=== PATIENT | male | born 1955 | race Caucasian/White ===

== ENCOUNTER → 2024-05-13 | Outpatient (BNVA) | payer MEDICARE, OTHER, SELFPAY | END | disposition home or self-care (01) | PROVIDERS: Visit Provider Urology | DX: N40.1 Benign prostatic hyperplasia with lower urinary tract symptoms (principal); N13.8 Other obstructive and reflux uropathy; Z80.42 Family history of malignant neoplasm of prostate; R97.20 Elevated prostate specific antigen [PSA]; N40.2 Nodular prostate without lower urinary tract symptoms; E78.5 Hyperlipidemia, unspecified; I10 Essential (primary) hypertension; E66.9 Obesity, unspecified; Z68.24 Body mass index [BMI] 24.0-24.9, adult | CPT/HCPCS: 81003; 99203; G0463 ==

== ENCOUNTER → 2024-08-05 | Outpatient (BNVA) | payer MEDICARE, OTHER, SELFPAY | END | disposition home or self-care (01) | PROVIDERS: Visit Provider Urology | DX: N40.1 Benign prostatic hyperplasia with lower urinary tract symptoms (principal); R39.12 Poor urinary stream | CPT/HCPCS: 51741; 51798 ==

== ENCOUNTER 2024-10-23 07:09 | Emergency (ER) | payer MEDICARE, OTHER, SELFPAY ==
[2024-10-23 07:10] VITALS: BMI 22.8
[2024-10-23 07:31] VITALS: BP 142/78; PULSE 89; RESP 16; TEMP 37.2; O2SAT 96
--- NOTE | 2024-10-23 07:38 | XR_ITS ---
Examination: CT abdomen and pelvis without contrast. Coronal 3-D reconstructions. Sagittal 2-D reconstructions. Date and time of exam:October 23, 2024, 0824 hrs. Indications: Onset left flank pain with nausea vomiting today CTDI: vol (mGy): 7.11 DLP: (mGycm): 388 Technique: Axial images of the abdomen have been obtained, 3 mm slice thickness Intravenous contrast material has not been administered. Low dose protocols were performed. One or more of the following dose reduction techniques were used; automated exposure control, adjustment of the mA and/or KV according to patient size, use of iterative reconstruction technique. Findings: No focal liver or splenic lesions No extrahepatic biliary tract dilatation. No pancreatic mass. Normal adrenal glands. Moderate bilateral hydronephrosis without renal or ureteral calculi, which appears to be secondary to distended urinary bladder and significant prostatomegaly No bowel obstruction or diverticulitis No pericecal inflammatory change Advanced degenerative disc disease L4-L5, L5-S1 Impression: Moderate bilateral hydronephrosis, distended urinary bladder, which appears to be outflow obstruction secondary to markedly enlarged prostate, clinical correlation advised
--- NOTE | 2024-10-23 07:40 | PD.EDRME ---
Rapid Medical Screening Exam RME Arrival date/time: 10/23/24 07:09 Chief Complaint: Urogenital-Male Time Seen by Provider: 10/23/24 07:12 Vital signs: Vital Signs Temperature 99.0 F 10/23/24 07:31 Pulse Rate 89 10/23/24 07:31 Respiratory Rate 16 10/23/24 07:31 Blood Pressure 142/78 H 10/23/24 07:31 Pulse Oximetry (%) 96 10/23/24 07:31 Oxygen Delivery Method Room Air 10/23/24 07:31 RME Narrative: 69yo male with 3day hx of lef flank pain that comes in waves. no hx of kidney stones. States had and mri 05/2023 for other issue of pancreas and was told he has very distended bladder. States chills but not fever, no burning with urination, no urinary retention.
[2024-10-23 07:50] LABS: Collection Type, Urine Clean Catch
[2024-10-23] MEDS: HYDROcodone/APAP 5/325 TABLET 1 TAB PO (07:51)
[2024-10-23] MEDS: ONDANSETRON ODT 4 MG TABRAP PO (07:51)
[2024-10-23] MEDS: KETOROLAC INJ 60 MG/2 ML VIAL 30 MG IM (07:52)
[2024-10-23 08:10] LABS: Bilirubin,Urine Negative (Negative); Blood,Urine Negative (Negative); Clarity,Urine Clear (Clear/Hazy); Color,Urine Lt-Yellow (Lt Yel-Yel); Glucose, Urine Negative (Negative); Ketones,Urine Negative (Negative); Leukocyte Esterase,Urine Positive (Negative); Nitrite,Urine Negative (Negative); PH,Urine 6.0 (5.0-7.0); Protein,Urine Negative (Neg - Trace); RBC,Urine 2 /hpf (0-3); Specific Gravity,Urine 1.013 (1.001-1.035); Squamous Epithelial Cell,Urine < 1 /hpf (0-5); Urobilinogen,Urine Negative mg/dL (0.0-1.0); WBC,Urine 1 /hpf (0-5)
[2024-10-23 08:12] LABS: Basophils # (Auto) 0.1 Thou/mm3 (0.0-0.2); Basophils % (Auto) 1 % (0-2.5); Eosinophils # (Auto) 0.1 Thou/mm3 (0.0-0.5); Eosinophils % (Auto) 1 % (0-10); Hematocrit 42.0 % (41.0-53.0); Hemoglobin 13.8 g/dL (13.5-16.0); Immature Granulocytes Auto 0.03 Thou/mm3 (0.00-0.00); Lymphocytes # (Auto) 1.0 Thou/mm3 (1.0-4.8); Lymphocytes % (Auto) 7 % (10-50); Mean Corpuscular HGB Conc 32.9 g/dl (31.0-37.0); Mean Corpuscular Hemoglobin 29.6 pg (25.0-35.0); Mean Corpuscular Volume 90 fL (80-100); Monocytes # (Auto) 1.3 Thou/mm3 (0.0-0.8); Monocytes % (Auto) 10 % (0-12); Neutrophils # (Auto) 10.9 Thou/mm3 (1.8-7.7); Neutrophils % (Auto) 82 % (37-80); Nucleated Red Blood Cell # 0.00 Thou/mm3 (0.00-0.00); Nucleated Red Blood Cell % 0 /100 WBC (0); Platelet Count 200 Thou/mm3 (140-440); RDW Standard Deviation 42.9 fL (35.1-43.9); Red Blood Count 4.66 Miln/mm3 (4.50-5.90); White Blood Count 13.3 Thou/mm3 (3.8-10.6)
--- NOTE | 2024-10-23 08:52 | PC.NURSE ---
pt came in with c/o left flank pain x 3 days. pt states that pain comes and goes but the since yesterday pain has been more frequent and spread to lower back and left abd area. pt denies blood in urine or painful urination but reports sometimes having to push on lower abd to get urine to come out. pt states pain is down to 2/10 after receiving medications this visit prior to coming into room. call light placed within reach
[2024-10-23 08:56] LABS: Alanine Aminotransferase 14 U/L (10-49); Albumin, Serum 4.7 gm/dL (3.4-4.8); Albumin/Globulin Ratio 1.9 (1.2-2.2); Alkaline Phosphatase 65 U/L (46-116); Anion Gap 10 (7-16); Aspartate Amino Transferase 11 U/L (0-34); BUN/Creatinine Ratio 14 Ratio (12-20); Bilirubin,Total 0.9 mg/dL (0.3-1.2); Blood Urea Nitrogen 23 mg/dL (9-23); Calcium 10.3 mg/dL (8.3-10.6); Calcium (Corrected) 10.3 mg/dL (8.5-10.1); Carbon Dioxide 29.1 mMol/L (20.0-31.0); Chloride 103 mMol/L (98-107); Creatinine (Component) 1.7 mg/dL (0.6-1.3); Estimated Creatinine Clearance 40.7 mL/min (>60); Globulin 2.5 gm/dL (2.3-3.5); Glucose 111 mg/dL (74-106); Lipase 32 U/L (12-53); Osmolality,Calculated 287 (275-295); Potassium 3.9 mMol/L (3.4-5.1); Sodium 142 mMol/L (136-145); Total Protein 7.2 gm/dL (5.7-8.2); eGFR 43 See Note
--- NOTE | 2024-10-23 09:47 | PD.EDMALE ---
ED Male Genitalurinary RME/HPI General Chief complaint: Urogenital-Male Stated complaint: LEFT FLANK PAIN Time Seen by Provider: 10/23/24 07:12 Arrival date/time: 10/23/24 07:09 Limitations: no limitations RME / HPI RME / HPI Narrative: 69yo male with 3day hx of lef flank pain that comes in waves. no hx of kidney stones. States had and mri 05/2023 for other issue of pancreas and was told he has very distended bladder. States chills but not fever, no burning with urination, no urinary retention. DR. GARCIA MAIN ED EVALUATION: 69 year old male with history of hypertension and BPH presents to the ED for evaluation of left flank pain with radiation to left mid abdomen that began intermittently 3 days ago and occurring more frequently last night. Described as a constant aching sensation that is rated as moderate to severe. Accompanied by chills, sweats, and urinary hesitancy. Denies fevers, vomiting, diarrhea, constipation, dysuria, urinary hesitancy, dysuria, or hematuria. Related Data Home Medications ?Medication ?Instructions ?Recorded ?Confirmed aspirin 81 mg tablet,delayed 81 mg PO QDAY 05/13/24 08/05/24 release losartan 25 mg tablet 25 mg PO BID 05/13/24 08/05/24 omeprazole 20 mg capsule,delayed 20 mg PO QDAY 05/13/24 08/05/24 release triamterene 37.5 1 cap PO QDAY 05/13/24 08/05/24 mg-hydrochlorothiazide 25 mg capsule Previous Rx's ?Medication ?Instructions ?Recorded tamsulosin 0.4 mg capsule (Flomax) 0.4 mg PO QDAY BPH #30 caps 10/23/24 Allergies Allergy/AdvReac Type Severity Reaction Status Date / Time codeine Allergy Nausea Verified 08/05/24 09:35 gluten Allergy Diarrhea Verified 08/05/24 09:35 Review of Systems Review of Systems Systems Reviewed: All systems reviewed, normal except as documented Past Medical History Past Medical History CARDIAC: Positive Hypertension; Negative Congestive Heart Failure RESPIRATORY: Negative Chronic Obstructive Pulmonary Disease (COPD) GENITOURINARY: Positive Benign Prostatic Hyperplasia; Negative Renal Disease ENDOCRINE: Negative Diabetes Mellitus Type 1 or Diabetes Mellitus Type 2 Social History SMOKING STATUS: Never smoker ED Exam General Limitations: Present no limitations General appearance: Present alert and in no apparent distress Head Head exam: Present atraumatic and normocephalic Eye Eye exam: Present normal appearance, PERRL and EOMI ENT ENT exam: Present normal exam, normal oropharynx and mucous membranes moist Neck Neck exam: Present normal inspection, full ROM and trachea midline Chest Chest inspection: Present normal inspection and symmetric chest wall rise Respiratory Respiratory exam: Present normal lung sounds bilaterally Cardiovascular Cardiovascular exam: Present regular rate, normal rhythm and normal heart sounds Abdominal Exam Abdominal exam: Present soft, normal bowel sounds and other (enlarged bladder ) Extremities Exam Extremities exam: Present normal inspection and full ROM Back Exam Back exam: Present normal inspection and full ROM Neurological Exam Neurological exam: Present alert, oriented X3 and CN II-XII intact Psychiatric Psychiatric exam: Present normal affect and normal mood Skin Skin exam: Present warm, dry, intact and normal color Course Quality Measures none Orders Category Date Time Status Simon to [place] Routine Care 10/23/24 10:[address] abdomen pelvis wo con Stat Exams 10/23/24 07:38 Completed CBC Stat Lab 10/23/24 08:00 Completed CMP [Comprehensive Metabolic Panel] Stat Lab 10/23/24 08:00 Completed Lipase Stat Lab 10/23/24 08:00 Completed Urinalysis Stat Lab 10/23/24 07:27 Completed HYDROcodone*/APAP 5/325 [Ilfeld 5/325] Med 10/23/24 07:38 Discontinued 1 tab PO X1 ONE Ketorolac Inj [Toradol Inj] Med 10/23/24 07:38 Discontinued 30 mg IM X1 ONE Lidocaine Jelly 2% Urojet [Xylocaine Jelly 2% Urojet] Med 10/23/24 10:40 Discontinued See Dose Instructions TOP X1 ONE Ondansetron Odt [Zofran Odt] Med 10/23/24 07:38 Discontinued 4 mg PO X1 ONE Vital Signs Vital signs: Vital Signs Temperature 99.0 F 10/23/24 07:31 Pulse Rate 89 10/23/24 07:31 Respiratory Rate 16 10/23/24 07:31 Blood Pressure 142/78 H 10/23/24 07:31 Pulse Oximetry (%) 96 10/23/24 07:31 Oxygen Delivery Method Room Air 10/23/24 07:31 Pulse ox is 96% on room air which is adequate. Urogenital - Male MDM Narrative MDM Narrative:: Vidya Boyd, asim scribing for and in the presence of Dr. Garcia. On examination, patients bladder was distended. CT abdomen shows distended urinary bladder, which appears to be outflow obstruction secondary to markedly enlarged prostate . A simon catheter was placed and patient had a total of 1,700cc of urine. Patient data External records reviewed:: [facility] previous records Clinical information provided by:: patient Social determinants that could affect healthcare access:: none Patient has the following chronic illnesses:: HTN, BPH How is presenting disease/condition affected by chronic disease/condition?: exacerbated by Evaluation data The following diagnostics were reviewed and interpreted by me:: lab results and radiology exam(s) Lab and/or radiology exams considered but not ordered:: None Interpretation Summary: Ordering Physician: Sylvia Burrell PA-C Date of Service: 10/23/24 Procedure(s): CT abdomen pelvis wo con Accession Number(s): [id number] cc: Sylvia Burrell PA-C; Larry Reeves MD; NO PRIMARY/FAMILY,PHYSICIAN~ Examination: CT abdomen and pelvis without contrast. Coronal 3-D reconstructions. Sagittal 2-D reconstructions. Date and time of exam:October 23, 2024, 0824 hrs. Indications: Onset left flank pain with nausea vomiting today CTDI: vol (mGy): 7.11 DLP: (mGycm): 388 Technique: Axial images of the abdomen have been obtained, 3 mm slice thickness Intravenous contrast material has not been administered. Low dose protocols were performed. One or more of the following dose reduction techniques were used; automated exposure control, adjustment of the mA and/or KV according to patient size, use of iterative reconstruction technique. Findings: No focal liver or splenic lesions No extrahepatic biliary tract dilatation. No pancreatic mass. Normal adrenal glands. Moderate bilateral hydronephrosis without renal or ureteral calculi, which appears to be secondary to distended urinary bladder and significant prostatomegaly No bowel obstruction or diverticulitis No pericecal inflammatory change Advanced degenerative disc disease L4-L5, L5-S1 Impression: Moderate bilateral hydronephrosis, distended urinary bladder, which appears to be outflow obstruction secondary to markedly enlarged prostate, clinical correlation advised Dictated By: Larry Reeves MD Signed By: <Electronically signed by Larry Reeves MD in [place]> 10/23/24 1003 Medications / Prescriptions Medications or Prescriptions considered but not ordered:: None Medication administrations:: Medication Administration History Discontinued Medications Hydrocodone Bitart/Acetaminophen (Hydrocodone/Apap 5/325 Tablet) 1 tab PO X1 ONE Stop: 10/23/24 07:39 Last Admin: 10/23/24 07:51 Dose: 1 tab Documented By: TM Ketorolac Tromethamine (Ketorolac Inj 60 Mg/2 Ml Vial) 30 mg IM X1 ONE Stop: 10/23/24 07:39 Last Admin: 10/23/24 07:52 Dose: 30 mg Documented By: TM Lidocaine HCl (Lidocaine Jelly 2% (Urojet) 10 Ml Tube) 0 ml TOP X1 ONE Stop: 10/23/24 10:41 Last Admin: 10/23/24 10:50 Dose: 10 ml Documented By: DO Ondansetron HCl (Ondansetron Odt 4 Mg Tabrap) 4 mg PO X1 ONE; Protocol Stop: 10/23/24 07:39 Last Admin: 10/23/24 07:51 Dose: 4 mg Documented By: RYANNE See above Consultations Consultation(s) initiated? (list below): No Diagnosis Urogenital Male Differential Diagnosis: urinary tract infection, acute retention of urine and other (BPH, pyelonephritis, kidney stone ) Most likely diagnosis given after review of the tests above:: urinary retention Bilateral hydronephrosis Enlarged prostate Admission Indicated Admission indicated?: not indicated Admission Request Was there a request for admission?: No Disposition Plan Disposition Plan: Discharge Discharge Attestation Discharge Attestation: The patient and all family members were given an opportunity to ask questions and understood the discharge instructions. Discharge instructions specifically effects, indications for sooner follow up or return to the emergency department, and the expected course of current diagnosis. Patient condition: Stable Discharge Plan Plan Patient Disposition: HOME (Self Care) Prescriptions/Referrals Prescriptions/Med Rec: New tamsulosin [Flomax] 0.4 mg capsule 0.4 mg PO QDAY MDD 1 Qty: 30 0RF No Action omeprazole 20 mg capsule,delayed release(DR/EC) 20 mg PO QDAY losartan 25 mg tablet 25 mg PO BID triamterene-hydrochlorothiazid 37.5-25 mg capsule 1 cap PO QDAY aspirin 81 mg tablet,delayed release (DR/EC) 81 mg PO QDAY Referrals: No Primary/Family,Physician [Primary Care Provider] - In 1 week Problem List Clinical Impression: Acute retention of urine, BPH (benign prostatic hyperplasia), Bilateral hydronephrosis, Renal insufficiency, Encounter for Simon catheter fitting and adjustment Patient/Caregiver Discharge Instructions Education Materials: Prostate Anatomy, Benign Prostatic Hyperplasia, ED Renal Insufficiency Additional Instructions: Follow-up with urology on Friday. Print Language: Danish Stand Alone Forms: Myrna Award Info., Patient Portal Info Letter
[2024-10-23 10:06] VITALS: BP 151/81; PULSE 70; RESP 15; TEMP 37.1; O2SAT 95
[2024-10-23] MEDS: LIDOCAINE JELLY 2% (Urojet) 10 ML TUBE TOP (10:50)
[2024-10-23 12:40] VITALS: BP 138/76; PULSE 77; RESP 18; TEMP 36.9; O2SAT 95
--- NOTE | 2024-10-23 13:10 | PC.NURSE ---
simon changed to leg bag at this time per doctors orders. instructed pt on how to drain bag and care of bag at home. pt verbalized understanding
== END 2024-10-23 13:20 | disposition home or self-care (01) ==
PROVIDERS: Physician Assistant; Emergency Provider Family Medicine
DX: N40.1 Benign prostatic hyperplasia with lower urinary tract symptoms (principal); R33.8 Other retention of urine; N13.30 Unspecified hydronephrosis
CPT/HCPCS: 51702; 36415; 74176; 80053; 81001; 83690; 85025; 96372; 99283; A4314; J1885; Q0162; A9270

== ENCOUNTER 2024-11-25 16:09 | Emergency (ER) | payer MEDICARE, OTHER, SELFPAY ==
[2024-11-25 16:17] VITALS: BP 159/78; PULSE 97; RESP 18; TEMP 36.6; O2SAT 95
--- NOTE | 2024-11-25 16:53 | PD.EDMALE ---
ED Male Genitalurinary RME/HPI General Chief complaint: Urogenital-Male Stated complaint: CHECK HERRERA CATTHETER Time Seen by Provider: 11/25/24 16:22 Arrival date/time: 11/25/24 16:09 69-year-old male presents to the emergency department today for placement of Herrera catheter patient reports a Herrera catheter replaced approximately 1 month ago and requesting to have Herrera catheter replaced Limitations: no limitations Related Data Home Medications ?Medication ?Instructions ?Recorded ?Confirmed aspirin 81 mg tablet,delayed 81 mg PO QDAY 05/13/24 08/05/24 release losartan 25 mg tablet 25 mg PO BID 05/13/24 08/05/24 omeprazole 20 mg capsule,delayed 20 mg PO QDAY 05/13/24 08/05/24 release triamterene 37.5 1 cap PO QDAY 05/13/24 08/05/24 mg-hydrochlorothiazide 25 mg capsule Previous Rx's ?Medication ?Instructions ?Recorded tamsulosin 0.4 mg capsule (Flomax) 0.4 mg PO QDAY BPH #30 caps 10/23/24 Allergies Allergy/AdvReac Type Severity Reaction Status Date / Time codeine Allergy Nausea Verified 11/25/24 16:10 gluten Allergy Diarrhea Verified 11/25/24 16:10 Review of Systems Review of Systems Systems Reviewed: All systems reviewed, normal except as documented Constitutional Constitutional: Reports system reviewed and no additional complaints, except as documented, Denies fever(s) and Denies headache(s) Eyes Eyes: Reports system reviewed and no additional complaints, except as documented and Denies blurry vision ENT Ears, Nose, Mouth, and Throat: Reports system reviewed and no additional complaints, except as documented, Denies headache(s), Denies nasal congestion and Denies nasal discharge Cardiovascular Cardiovascular: Reports system reviewed and no additional complaints, except as documented, Denies chest pain and Denies dyspnea Respiratory Respiratory: Reports system reviewed and no additional complaints, except as documented, Denies chest congestion, Denies cough and Denies dyspnea Gastrointestinal Gastrointestinal: Reports system reviewed and no additional complaints, except as documented and Denies abdominal pain Genitourinary Genitourinary: Reports system reviewed and no additional complaints, except as documented and Reports other (Catheter in place) Integumentary/Breasts Skin/Breast: Reports system reviewed and no additional complaints, except as documented and Denies rash Neurologic Neurologic: Reports system reviewed and no additional complaints, except as documented, Reports as per HPI and Denies headache(s) Past Medical History Past Medical History CARDIAC: Positive Hypertension; Negative Congestive Heart Failure RESPIRATORY: Negative Chronic Obstructive Pulmonary Disease (COPD) GENITOURINARY: Positive Benign Prostatic Hyperplasia; Negative Renal Disease ENDOCRINE: Negative Diabetes Mellitus Type 1 or Diabetes Mellitus Type 2 Social History SMOKING STATUS: Never smoker ED Exam General Limitations: Present no limitations General appearance: Present alert and in no apparent distress Head Head exam: Present atraumatic Eye Eye exam: Present normal appearance, PERRL and EOMI ENT ENT exam: Present normal exam, normal oropharynx and mucous membranes moist Neck Neck exam: Present normal inspection, full ROM and trachea midline Chest Chest inspection: Present normal inspection and symmetric chest wall rise Respiratory Respiratory exam: Present normal lung sounds bilaterally Cardiovascular Cardiovascular exam: Present regular rate, normal rhythm and normal heart sounds Abdominal Exam Abdominal exam: Present soft and normal bowel sounds; Absent distention, tenderness, guarding, rebound or rigidity Extremities Exam Extremities exam: Present normal inspection and full ROM Back Exam Back exam: Present normal inspection and full ROM Neurological Exam Neurological exam: Present alert, oriented X3 and CN II-XII intact Psychiatric Psychiatric exam: Present normal affect and normal mood Skin Skin exam: Present warm, dry, intact and normal color Course Quality Measures none Orders Category Date Time Status Herrera [Urinary Catheter] NOW Care 11/25/24 16:20 Active Herrera to Leg Bag NOW Care 11/25/24 16:20 Ordered Vital Signs Vital signs: Vital Signs Temperature 97.8 F 11/25/24 16:17 Pulse Rate 97 11/25/24 16:17 Respiratory Rate 18 11/25/24 16:17 Blood Pressure 159/78 H 11/25/24 16:17 Pulse Oximetry (%) 95 11/25/24 16:17 Oxygen Delivery Method Room Air 11/25/24 16:17 O2 saturation 95% room air within the limits Urogenital - Male MDM Narrative MDM Narrative:: 69-year-old male presents to the emergency department today for placement of Herrera catheter patient reports a Herrera catheter replaced approximately 1 month ago and requesting to have Herrera catheter replaced On exam patient well-appearing patient does not appear ill or toxic no acute distress Herrera catheter is replaced without difficulty Patient does report that he is a follow-up on the with Dr Green urologist For emergent concerns patient is instructed return meetly for further evaluation Patient data External records reviewed:: [facility] previous records Clinical information provided by:: patient Social determinants that could affect healthcare access:: none Patient has the following chronic illnesses:: History How is presenting disease/condition affected by chronic disease/condition?: caused by Evaluation data The following diagnostics were reviewed and interpreted by me:: other (specify) Lab and/or radiology exams considered but not ordered:: Considered not ordered Interpretation Summary: N/A Medications / Prescriptions Medications or Prescriptions considered but not ordered:: No meds Medication administrations:: No meds Consultations Consultation(s) initiated? (list below): No Diagnosis Urogenital Male Differential Diagnosis: urinary tract infection and acute retention of urine Most likely diagnosis given after review of the tests above:: Herrera catheter placement Admission Indicated Admission indicated?: not indicated Admission Request Was there a request for admission?: No Disposition Plan Disposition Plan: Discharge Discharge Attestation Discharge Attestation: The patient and all family members were given an opportunity to ask questions and understood the discharge instructions. Discharge instructions specifically effects, indications for sooner follow up or return to the emergency department, and the expected course of current diagnosis. Patient condition: Stable Discharge Plan Plan Patient Disposition: HOME (Self Care) Discharge Disposition comment: Stable Prescriptions/Referrals Prescriptions/Med Rec: No Action omeprazole 20 mg capsule,delayed release(DR/EC) 20 mg PO QDAY losartan 25 mg tablet 25 mg PO BID triamterene-hydrochlorothiazid 37.5-25 mg capsule 1 cap PO QDAY aspirin 81 mg tablet,delayed release (DR/EC) 81 mg PO QDAY tamsulosin [Flomax] 0.4 mg capsule 0.4 mg PO QDAY MDD 1 Qty: 30 0RF Problem List Clinical Impression: Encounter for Herrera catheter replacement Patient/Caregiver Discharge Instructions Additional Instructions: Please keep your appointment with your specialist on the for worsening symptoms or concerns return immediately Print Language: Tajik Stand Alone Forms: Myrna Award Info., Patient Portal Info Letter PA/C.O.D. CLERK Supervising Physician PA/C.O.D. CLERK Supervising Physician: Dr. boland
== END 2024-11-25 16:57 | disposition home or self-care (01) ==
LOC: SERX 16:37
PROVIDERS: Emergency Provider Family Medicine
DX: Z46.6 Encounter for fitting and adjustment of urinary device (principal); N39.0 Urinary tract infection, site not specified; N40.0 Benign prostatic hyperplasia without lower urinary tract symptoms; N41.9 Inflammatory disease of prostate, unspecified
CPT/HCPCS: 51702; 99284; A4314

== ENCOUNTER 2024-12-07 22:31 | Emergency (ER) | payer MEDICARE, OTHER, SELFPAY ==
[2024-12-07 22:32] VITALS: BMI 23.2
[2024-12-07 23:03] VITALS: BP 154/82; PULSE 76; RESP 18; TEMP 36.7; O2SAT 96
[2024-12-07 23:56] LABS: Collection Type, Urine Catheter; Squamous Epithelial Cell,Urine 0 /hpf (0-5)
[2024-12-08 00:14] LABS: Bacteria,Urine Rare; Bilirubin,Urine Negative (Negative); Blood,Urine Negative (Negative); Clarity,Urine Clear (Clear/Hazy); Color,Urine Lt-Yellow (Lt Yel-Yel); Glucose, Urine Negative (Negative); Hyaline Casts,Urine < 1 /hpf (0-1); Ketones,Urine Negative (Negative); Leukocyte Esterase,Urine Positive (Negative); Nitrite,Urine Negative (Negative); PH,Urine 6.5 (5.0-7.0); Protein,Urine Trace (Neg - Trace); RBC,Urine 12 /hpf (0-3); Specific Gravity,Urine 1.015 (1.001-1.035); Urobilinogen,Urine Negative mg/dL (0.0-1.0); WBC,Urine 165 /hpf (0-5)
--- NOTE | 2024-12-08 00:50 | PD.EDADULT ---
ED General RME/HPI General Chief complaint: General Adult/Misc Complain Stated complaint: UNABLE TO URINATE SP CATH REMOVAL TODAY Time Seen by Provider: 12/07/24 23:27 Arrival date/time: 12/07/24 22:31 RME / HPI RME / HPI narrative: 69-year-old male with a past medical history of BPH had a catheter placed about 2 months ago for acute urinary retention which had backed up to his kidneys and was removed earlier today by his urologist and he was given a shot of ceftriaxone at that time presents this evening as he was unable to urinate since removal of the catheter. Patient only additionally endorses about 800 cc of urine in the morning after going to bed every night inside of his Coleman bag. Denies fever, nausea vomiting, urinary symptoms. Related Data Home Medications ?Medication ?Instructions ?Recorded ?Confirmed losartan 25 mg tablet 25 mg PO BID 05/13/24 12/07/24 omeprazole 20 mg capsule,delayed 20 mg PO QDAY 05/13/24 12/07/24 release triamterene 37.5 1 cap PO QDAY 05/13/24 12/07/24 mg-hydrochlorothiazide 25 mg capsule Previous Rx's ?Medication ?Instructions ?Recorded ciprofloxacin HCl 500 mg tablet 500 mg PO BID #14 tabs 12/08/24 Allergies Allergy/AdvReac Type Severity Reaction Status Date / Time codeine Allergy Nausea Verified 12/07/24 22:36 gluten Allergy Diarrhea Verified 12/07/24 22:36 ED Exam Narrative Physical exam: Constitutional: Vital Signs Reviewed. Well appearing. No acute distress. Not toxic appearing. Head: Normocephalic, atraumatic. Eyes: Conjunctiva clear. ENT: Mucous membranes moist. Neck: Trachea midline. Normal range of motion. No nuchal rigidity. Respiratory: Normal effort. No respiratory distress or accessory muscle use. Neuro: Alert and oriented. Speech normal. No focal gross motor or sensory deficits observed. Back: No CVA tenderness to palpation bilaterally Abdomen: Soft, distended bladder. No guarding or peritonitis. Skin: Warm, dry, normal color. Psych: Pleasant. Normal affect. Cooperative. Course Course Course Narrative: CBC is notable for mild leukocytosis with a white count of 12.5, mild anemia with a hemoglobin of 13.3, I suspect patient's mild leukocytosis is likely secondary to acute stress reaction given he was in acute urinary retention when he was here and doubt urosepsis patient is afebrile and feels well CMP notable for BUN minimally elevated 24, creatinine within normal limits at 1.2, glucose minimally elevated 109 UA concerning for infection Pt already given 1 dose ceftriaxone by Urologist in office today and will be rx with cipro Quality Measures none Orders Category Date Time Status Coleman to Leg Bag Routine Care 12/07/24 23:29 Ordered CBC Stat Lab 12/08/24 01:21 Completed CMP [Comprehensive Metabolic Panel] Stat Lab 12/08/24 01:21 Completed Urinalysis Stat Lab 12/07/24 23:50 Completed Urine Culture Stat Lab 12/07/24 23:50 Received Reevaluation(s) Reevaluation #1: At the time of reassessment, the patient remains alert and oriented ?3 with GCS 15. Vitals are normal, pain is controlled, and the patient is tolerating oral intake without nausea or vomiting. The patient is agreeable to discharge and verbalizes understanding of the diagnosis, studies, treatment plan, medications (including side effects/precautions), and strict ER return precautions as discussed in the ED. All concerns were addressed, and the patient is comfortable with the plan. Vital Signs Vital signs: Vital Signs Temperature 98.1 F 12/07/24 23:03 Pulse Rate 76 12/07/24 23:03 Respiratory Rate 18 12/07/24 23:03 Blood Pressure 154/82 H 12/07/24 23:03 Pulse Oximetry (%) 96 12/07/24 23:03 Oxygen Delivery Method Room Air 12/07/24 23:03 Discharge Plan Plan Patient Disposition: HOME (Self Care) Prescriptions/Referrals Prescriptions/Med Rec: New ciprofloxacin HCl 500 mg tablet 500 mg PO BID Qty: 14 0RF No Action omeprazole 20 mg capsule,delayed release(DR/EC) 20 mg PO QDAY losartan 25 mg tablet 25 mg PO BID triamterene-hydrochlorothiazid 37.5-25 mg capsule 1 cap PO QDAY Problem List Clinical Impression: Acute on chronic urinary retention Patient/Caregiver Discharge Instructions Education Materials: ED Coleman Catheter, Care, ED Urinary Retention, Male Additional Instructions: The antibiotics which you are getting can cause tendon rupture therefore please avoid strenuous activity until cleared by your primary medical doctor. Follow up with your primary medical doctor and urologist within 24 hours. Return to the Emergency Room immediately for any new, worsening, continuing symptoms or any concerns at all. Return to the Emergency Room within 24 hours if you are unable to follow up with your primary medical doctor and urologist within 24 hours. Stay hydrated. Print Language: South African Stand Alone Forms: [employer]rna Award Info., Patient Portal Info Letter MDM Narrative MDM hospital course (for use when minimal MDM required): MDM 69-year-old with a past medical history of renal insufficiency with a creatinine of 1.7 noted on October 23 along with bilateral hydro secondary to acute urinary retention from an enlarged prostate at that time he had a Coleman catheter placed and since that date patient notes that he has been having around 800 cc of urine noted in his bag every morning after going to bed at night. Patient was given a shot of ceftriaxone today at his urologist office at the time of Coleman catheter removal for a voiding trial however he has been unable to void since this morning therefore he presented to the ER with bladder fullness. UA notable for 12 RBCs, 165 RBCs concerning for possible UTI which could be a precipitant of patient's recurrent acute urinary retention Patient was given a Coleman here and we have thus far noted about 2000 cc of output at this time, will check renal function to exclude postobstructive diuresis syndrome and DANILO Patient without signs of urosepsis at this time No prior U culture avaialable Plan to discharge patient with antibiotics (medication precautions advised) urine culture pending, will advise patient to continue with good hydration, ED dispo pending ED course including CBC and CMP however if renal function is at his baseline patient will be safe to follow-up with urologist in 1 to 2 days, strict ER return precautions advised Clinical Information Provided by: patient Medical Records reviewed None Diagnosis Differential Diagnosis ED Complaint MDM: Acute urinary retention
[2024-12-08 01:35] LABS: Basophils # (Auto) 0.1 Thou/mm3 (0.0-0.2); Basophils % (Auto) 1 % (0-2.5); Eosinophils # (Auto) 0.2 Thou/mm3 (0.0-0.5); Eosinophils % (Auto) 2 % (0-10); Hematocrit 39.2 % (41.0-53.0); Hemoglobin 13.3 g/dL (13.5-16.0); Immature Granulocytes Auto 0.04 Thou/mm3 (0.00-0.00); Lymphocytes # (Auto) 1.2 Thou/mm3 (1.0-4.8); Lymphocytes % (Auto) 10 % (10-50); Mean Corpuscular HGB Conc 33.9 g/dl (31.0-37.0); Mean Corpuscular Hemoglobin 30.4 pg (25.0-35.0); Mean Corpuscular Volume 90 fL (80-100); Monocytes # (Auto) 0.8 Thou/mm3 (0.0-0.8); Monocytes % (Auto) 6 % (0-12); Neutrophils # (Auto) 10.2 Thou/mm3 (1.8-7.7); Neutrophils % (Auto) 82 % (37-80); Nucleated Red Blood Cell # 0.00 Thou/mm3 (0.00-0.00); Nucleated Red Blood Cell % 0 /100 WBC (0); Platelet Count 234 Thou/mm3 (140-440); RDW Standard Deviation 44.2 fL (35.1-43.9); Red Blood Count 4.38 Miln/mm3 (4.50-5.90); White Blood Count 12.5 Thou/mm3 (3.8-10.6)
[2024-12-08 01:57] LABS: Alanine Aminotransferase 14 U/L (10-49); Albumin, Serum 4.4 gm/dL (3.4-4.8); Albumin/Globulin Ratio 1.8 (1.2-2.2); Alkaline Phosphatase 64 U/L (46-116); Anion Gap 10 (7-16); Aspartate Amino Transferase 16 U/L (0-34); BUN/Creatinine Ratio 20 Ratio (12-20); Bilirubin,Total 0.6 mg/dL (0.3-1.2); Blood Urea Nitrogen 24 mg/dL (9-23); Calcium 9.5 mg/dL (8.3-10.6); Calcium (Corrected) 9.5 mg/dL (8.5-10.1); Carbon Dioxide 28.4 mMol/L (20.0-31.0); Chloride 102 mMol/L (98-107); Creatinine (Component) 1.2 mg/dL (0.6-1.3); Estimated Creatinine Clearance 58.3 mL/min (>60); Globulin 2.4 gm/dL (2.3-3.5); Glucose 109 mg/dL (74-106); Osmolality,Calculated 284 (275-295); Potassium 4.3 mMol/L (3.4-5.1); Sodium 140 mMol/L (136-145); Total Protein 6.8 gm/dL (5.7-8.2); eGFR > 60 See Note
[2024-12-08 02:25] VITALS: BP 142/65; PULSE 79; RESP 18; TEMP 36.7; O2SAT 98
== END 2024-12-08 02:28 | disposition home or self-care (01) ==
PROVIDERS: Physician Assistant; Emergency Provider Emergency Medicine
DX: N40.1 Benign prostatic hyperplasia with lower urinary tract symptoms (principal); R33.8 Other retention of urine
CPT/HCPCS: 36415; 80053; 81001; 85025; 87086; 99283; A4314

== ENCOUNTER → 2024-12-07 | Outpatient (BNVA) | payer MEDICARE, OTHER, SELFPAY | END | disposition home or self-care (01) | PROVIDERS: Visit Provider Urology | DX: N40.0 Benign prostatic hyperplasia without lower urinary tract symptoms (principal); Z80.42 Family history of malignant neoplasm of prostate; N13.30 Unspecified hydronephrosis; Z46.6 Encounter for fitting and adjustment of urinary device; I10 Essential (primary) hypertension | CPT/HCPCS: 96372; 99212; J1580; G0463 ==

== ENCOUNTER 2025-01-07 07:47 | Emergency (ER) | payer MEDICARE, OTHER, SELFPAY ==
[2025-01-07 07:47] VITALS: BMI 21.8
[2025-01-07 08:04] VITALS: BP 155/84; PULSE 78; RESP 18; TEMP 36.9; O2SAT 99
--- NOTE | 2025-01-07 08:36 | PD.EDMALE ---
ED Male Genitalurinary RME/HPI General Chief complaint: Urogenital-Male Stated complaint: F/C CHANGED OUT Time Seen by Provider: 01/07/25 08:10 Source: patient Arrival date/time: 01/07/25 07:47 69-year-old male with a history of hyperlipidemia, BPH presents to the emergency room for a Coleman catheter replacement. Patient states has been 30 days since his last Coleman catheter change. Patient denies any dysuria or any urinary problems. Mode of arrival: ambulatory Limitations: no limitations Related Data Home Medications ?Medication ?Instructions ?Recorded ?Confirmed losartan 25 mg tablet 25 mg PO BID 05/13/24 12/07/24 omeprazole 20 mg capsule,delayed 20 mg PO QDAY 05/13/24 12/07/24 release triamterene 37.5 1 cap PO QDAY 05/13/24 12/07/24 mg-hydrochlorothiazide 25 mg capsule finasteride 5 mg tablet 5 mg PO QDAY 12/15/24 12/15/24 tamsulosin 0.4 mg capsule 0.4 mg PO QHS 12/15/24 12/15/24 Previous Rx's ?Medication ?Instructions ?Recorded ciprofloxacin HCl 500 mg tablet 500 mg PO BID #14 tabs 12/08/24 Allergies Allergy/AdvReac Type Severity Reaction Status Date / Time codeine Allergy Nausea Verified 12/07/24 22:36 gluten Allergy Diarrhea Verified 12/07/24 22:36 Review of Systems Review of Systems Systems Reviewed: All systems reviewed, normal except as documented Constitutional Constitutional: Reports system reviewed and no additional complaints, except as documented, Denies fatigue, Denies fever(s), Denies headache(s) and Denies weakness Eyes Eyes: Reports system reviewed and no additional complaints, except as documented, Denies blurry vision and Denies change in vision ENT Ears, Nose, Mouth, and Throat: Reports system reviewed and no additional complaints, except as documented, Denies otalgia, Denies headache(s), Denies nasal congestion, Denies throat swelling and Denies vertigo Cardiovascular Cardiovascular: Reports system reviewed and no additional complaints, except as documented, Denies chest pain, Denies dyspnea and Denies dyspnea on exertion Respiratory Respiratory: Reports system reviewed and no additional complaints, except as documented, Denies chest congestion, Denies cough, Denies dyspnea, Denies dyspnea on exertion and Denies wheezing Gastrointestinal Gastrointestinal: Reports system reviewed and no additional complaints, except as documented, Denies abdominal pain, Denies cramping, Denies nausea and Denies vomiting Genitourinary Genitourinary: Reports system reviewed and no additional complaints, except as documented, Denies dysuria and Denies hematuria Musculoskeletal Musculoskeletal: Reports system reviewed and no additional complaints, except as documented and Denies back pain Integumentary/Breasts Skin/Breast: Reports system reviewed and no additional complaints, except as documented and Denies wounds Neurologic Neurologic: Reports system reviewed and no additional complaints, except as documented, Denies confusion, Denies headache(s), Denies lack of coordination, Denies vertigo and Denies weakness Psychiatric Psychiatric: Reports system reviewed and no additional complaints, except as documented, Denies anxiety, Denies confusion, Denies depression, Denies paranoia, Denies suicidal ideation and Denies tactile hallucinations Endocrine Endocrine: Reports system reviewed and no additional complaints, except as documented and Denies fatigue Hematologic/Lymphatic Hematologic/Lymphatic: Reports system reviewed and no additional complaints, except as documented and Denies lymphadenopathy Allergic/Immunologic Allergic/Immunologic: Reports system reviewed and no additional complaints, except as documented, Denies throat swelling, Denies urticaria and Denies wheezing Past Medical History Past Medical History CARDIAC: Positive Hypertension; Negative Congestive Heart Failure RESPIRATORY: Negative Chronic Obstructive Pulmonary Disease (COPD) GENITOURINARY: Positive Benign Prostatic Hyperplasia; Negative Renal Disease ENDOCRINE: Negative Diabetes Mellitus Type 1 or Diabetes Mellitus Type 2 Social History SMOKING STATUS: Never smoker ED Exam General Limitations: Present no limitations General appearance: Present alert and in no apparent distress Head Head exam: Present atraumatic Eye Eye exam: Present normal appearance, PERRL and EOMI ENT ENT exam: Present normal exam, normal oropharynx and mucous membranes moist Neck Neck exam: Present normal inspection, full ROM and trachea midline Chest Chest inspection: Present normal inspection and symmetric chest wall rise Respiratory Respiratory exam: Present normal lung sounds bilaterally Cardiovascular Cardiovascular exam: Present regular rate, normal rhythm and normal heart sounds Abdominal Exam Abdominal exam: Present soft and normal bowel sounds Extremities Exam Extremities exam: Present normal inspection and full ROM Back Exam Back exam: Present normal inspection and full ROM Neurological Exam Neurological exam: Present alert, oriented X3 and CN II-XII intact Psychiatric Psychiatric exam: Present normal affect and normal mood Skin Skin exam: Present warm, dry, intact and normal color Course Quality Measures none Orders Category Date Time Status Coleman [Urinary Catheter] QS Care 01/07/25 08:08 Active Coleman to Leg Bag Routine Care 01/07/25 08:09 Ordered Vital Signs Vital signs: Vital Signs Temperature 98.5 F 01/07/25 08:04 Pulse Rate 78 01/07/25 08:04 Respiratory Rate 18 01/07/25 08:04 Blood Pressure 155/84 H 01/07/25 08:04 Pulse Oximetry (%) 99 01/07/25 08:04 Oxygen Delivery Method Room Air 01/07/25 08:04 Urogenital - Male MDM Narrative MDM Narrative:: 69-year-old male with a history of hyperlipidemia, BPH presents to the emergency room for a Coleman catheter replacement. Patient states has been 30 days since his last Coleman catheter change. Patient denies any dysuria or any urinary problems. Patient is hemodynamically stable and in no apparent distress. Patient states he is only here to have his Coleman catheter replaced. Patient denies any urinary problems or any urinary complaints. Patient states his next urology appointment is on 01/14/2025. Patient has his Coleman catheter in place due to urinary retention due to an enlarged prostate. This Coleman catheter was replaced with no complications, a leg bag was attached. Patient was discharged and educated to follow-up with primary care provider in the next 24 to 48 hours and return to the emergency room for any evidence of worsening signs or symptoms Patient data External records reviewed:: [facility] previous records Clinical information provided by:: patient Social determinants that could affect healthcare access:: none Patient has the following chronic illnesses:: BPH How is presenting disease/condition affected by chronic disease/condition?: caused by Evaluation data The following diagnostics were reviewed and interpreted by me:: lab results and radiology exam(s) Lab and/or radiology exams considered but not ordered:: Labs and radiology exams considered and ordered Interpretation Summary: N/A Medications / Prescriptions Medications or Prescriptions considered but not ordered:: No medication given Medication administrations:: No medication given Consultations Consultation(s) initiated? (list below): No Diagnosis Urogenital Male Differential Diagnosis: urinary tract infection, prostatitis and other (Encounter for Coleman catheter replacement) Most likely diagnosis given after review of the tests above:: Encounter for Coleman catheter replacement Admission Indicated Admission indicated?: not indicated Admission Request Was there a request for admission?: No Disposition Plan Disposition Plan: Discharge Discharge Attestation Discharge Attestation: The patient and all family members were given an opportunity to ask questions and understood the discharge instructions. Discharge instructions specifically effects, indications for sooner follow up or return to the emergency department, and the expected course of current diagnosis. Patient condition: Stable Discharge Plan Plan Patient Disposition: HOME (Self Care) Discharge Disposition comment: Stable Prescriptions/Referrals Prescriptions/Med Rec: No Action tamsulosin 0.4 mg capsule 0.4 mg PO QHS finasteride 5 mg tablet 5 mg PO QDAY omeprazole 20 mg capsule,delayed release(DR/EC) 20 mg PO QDAY losartan 25 mg tablet 25 mg PO BID triamterene-hydrochlorothiazid 37.5-25 mg capsule 1 cap PO QDAY ciprofloxacin HCl 500 mg tablet 500 mg PO BID Qty: 14 0RF Problem List Clinical Impression: Encounter for Coleman catheter replacement Patient/Caregiver Discharge Instructions Additional Instructions: Please follow-up with your primary care provider in the next 24 to 48 hours Your Coleman catheter was replaced with no complications For any evidence of worsening signs or symptoms return to the emergency room immediately Print Language: Bulgarian Stand Alone Forms: Myrna Award Info., Patient Portal Info Letter PA/[employer] Supervising Physician PA/[employer]HE[employer]TER Supervising Physician: Dr. Watson
== END 2025-01-07 09:01 | disposition home or self-care (01) ==
LOC: SERX 08:41
PROVIDERS: Emergency Provider Nurse Practitioner Family
DX: Z46.6 Encounter for fitting and adjustment of urinary device (principal)
CPT/HCPCS: 99281

== ENCOUNTER 2025-02-07 07:12 | Emergency (ER) | payer MEDICARE, OTHER, SELFPAY ==
[2025-02-07 07:24] VITALS: BP 158/80; PULSE 94; RESP 18; TEMP 36.7; O2SAT 97; BMI 21.8
--- NOTE | 2025-02-07 07:32 | EDNOTE_ITS ---
<Statement entered by Larissa Vasques MD - 02/08/25 17:40> As co-signing physician, I was present and available for consult prn. I concur with the plan and care as documented by the midlevel provider. ED Male Genitalurinary RME/HPI General Chief complaint: Urogenital-Male Stated complaint: CHANGE HERRERA CATH Time Seen by Provider: 02/07/25 07:21 Source: patient Arrival date/time: 02/07/25 07:12 69-year-old male with a history of BPH presents to the emergency room for replacement of his Herrera catheter. Patient has no complaints and states it has been in place for a month. Mode of arrival: ambulatory Limitations: no limitations Related Data Home Medications ?Medication ?Instructions ?Recorded ?Confirmed losartan 25 mg tablet 25 mg PO BID 05/13/24 omeprazole 20 mg capsule,delayed 20 mg PO QDAY 5 01/14/25 release triamterene 37.5 1 cap PO QDAY 05/13/2401/14 mg-hydrochlorothiazide 25 mg capsule finasteride 5 mg tablet 5 mg PO QDAY 12/15/24 tamsulosin 0.4 mg capsule 0.4 mg PO QHS 12/15/2401/14 Allergies Allergy/AdvReac Type Severity Reaction Status Date / Time codeine Allergy Nausea Verified 02/07/25 07:13 gluten Allergy Diarrhea Verified 02/07/25 07:13 Review of Systems Review of Systems Systems Reviewed: All systems reviewed, normal except as documented Constitutional Constitutional: Reports system reviewed and no additional complaints, except as documented, Denies fatigue, Denies fever(s), Denies headache(s) and Denies weakness Eyes Eyes: Reports system reviewed and no additional complaints, except as documented, Denies blurry vision and Denies change in vision ENT Ears, Nose, Mouth, and Throat: Reports system reviewed and no additional complaints, except as documented, Denies otalgia, Denies headache(s), Denies nasal congestion, Denies throat swelling and Denies vertigo Cardiovascular Cardiovascular: Reports system reviewed and no additional complaints, except as documented, Denies chest pain, Denies dyspnea and Denies dyspnea on exertion Respiratory Respiratory: Reports system reviewed and no additional complaints, except as documented, Denies chest congestion, Denies cough, Denies dyspnea, Denies dyspnea on exertion and Denies wheezing Gastrointestinal Gastrointestinal: Reports system reviewed and no additional complaints, except as documented, Denies abdominal pain, Denies cramping, Denies nausea and Denies vomiting Genitourinary Genitourinary: Reports system reviewed and no additional complaints, except as documented, Denies dysuria, Denies flank pain, Denies genital pain, Denies hematuria and Denies penile discharge Musculoskeletal Musculoskeletal: Reports system reviewed and no additional complaints, except as documented and Denies back pain Integumentary/Breasts Skin/Breast: Reports system reviewed and no additional complaints, except as documented and Denies wounds Neurologic Neurologic: Reports system reviewed and no additional complaints, except as documented, Denies confusion, Denies headache(s), Denies lack of coordination, Denies vertigo and Denies weakness Psychiatric Psychiatric: Reports system reviewed and no additional complaints, except as documented, Denies anxiety, Denies confusion, Denies depression, Denies paranoia, Denies suicidal ideation and Denies tactile hallucinations Endocrine Endocrine: Reports system reviewed and no additional complaints, except as documented and Denies fatigue Hematologic/Lymphatic Hematologic/Lymphatic: Reports system reviewed and no additional complaints, except as documented and Denies lymphadenopathy Allergic/Immunologic Allergic/Immunologic: Reports system reviewed and no additional complaints, except as documented, Denies throat swelling, Denies urticaria and Denies wheezing Past Medical History Past Medical History CARDIAC: Positive Hypertension; Negative Congestive Heart Failure RESPIRATORY: Negative Chronic Obstructive Pulmonary Disease (COPD) GENITOURINARY: Positive Benign Prostatic Hyperplasia; Negative Renal Disease ENDOCRINE: Negative Diabetes Mellitus Type 1 or Diabetes Mellitus Type 2 Social History SMOKING STATUS: Never smoker ED Exam General Limitations: Present no limitations General appearance: Present alert and in no apparent distress Head Head exam: Present atraumatic Eye Eye exam: Present normal appearance, PERRL and EOMI ENT ENT exam: Present normal exam, normal oropharynx and mucous membranes moist Neck Neck exam: Present normal inspection, full ROM and trachea midline Chest Chest inspection: Present normal inspection and symmetric chest wall rise Respiratory Respiratory exam: Present normal lung sounds bilaterally Cardiovascular Cardiovascular exam: Present regular rate, normal rhythm and normal heart sounds Abdominal Exam Abdominal exam: Present soft and normal bowel sounds; Absent distention, tenderness, guarding, rebound or rigidity Extremities Exam Extremities exam: Present normal inspection and full ROM Back Exam Back exam: Present normal inspection and full ROM Neurological Exam Neurological exam: Present alert, oriented X3 and CN II-XII intact Psychiatric Psychiatric exam: Present normal affect and normal mood Skin Skin exam: Present warm, dry, intact and normal color Course Quality Measures none Orders Category Date Time Status Herrera [Urinary Catheter, Remove] ONCE Care 02/07/25 07:32 Active Herrera [Urinary Catheter] QS Care 02/07/25 07:32 Active Herrera to Leg Bag Routine Care 02/07/25 07:32 Ordered Lidocaine Jelly 2% Urojet [Xylocaine Jelly 2% Urojet] Med 02/07/25 07:32 Discontinued See Dose Instructions TOP X1 ONE Vital Signs Vital signs: Vital Signs Temperature 98.1 F 02/07/25 07:24 Pulse Rate 94 02/07/25 07:24 Respiratory Rate 18 02/07/25 07:24 Blood Pressure 158/80 H 02/07/25 07:24 Pulse Oximetry (%) 97 02/07/25 07:24 Oxygen Delivery Method Room Air 02/07/25 07:24 Urogenital - Male MDM Narrative MDM Narrative:: 69-year-old male with a history of BPH presents to the emergency room for replacement of his Herrera catheter. Patient has no complaints and states it has been in place for a month. Patient is hemodynamically stable and in no apparent distress Patient denies any acute urinary retention, dysuria, discharge, blood in the urine or any other complaints. Patient states he was instructed to change his Herrera catheter once a month His Herrera catheter was changed with no complications Patient was discharged and educated to follow-up with primary care provider in the next 24 to 48 hours and return to the emergency room for any evidence of worsening signs or symptoms Patient data External records reviewed:: [facility] previous records Clinical information provided by:: patient Social determinants that could affect healthcare access:: none Patient has the following chronic illnesses:: BPH How is presenting disease/condition affected by chronic disease/condition?: no chronic disease Evaluation data The following diagnostics were reviewed and interpreted by me:: lab results and radiology exam(s) Lab and/or radiology exams considered but not ordered:: Labs and radiology exams considered and ordered Interpretation Summary: N/A Medications / Prescriptions Medications or Prescriptions considered but not ordered:: Medication given Medication administrations:: Medication Administration History Discontinued Medications Lidocaine HCl (Lidocaine Jelly 2% (Urojet) 10 Ml Tube) 0 ml TOP X1 ONE Stop: 02/07/25 07:33 Last Admin: 02/07/25 07:56 Dose: 10 ml Documented By: TORITO Medication Consultations Consultation(s) initiated? (list below): No Diagnosis Urogenital Male Differential Diagnosis: acute retention of urine and other (Encounter for replacement of Herrera catheter) Most likely diagnosis given after review of the tests above:: Encounter for replacement of Herrera catheter Admission Indicated Admission indicated?: not indicated Admission Request Was there a request for admission?: No Disposition Plan Disposition Plan: Discharge Discharge Attestation Discharge Attestation: The patient and all family members were given an opportunity to ask questions and understood the discharge instructions. Discharge instructions specifically effects, indications for sooner follow up or return to the emergency department, and the expected course of current diagnosis. Patient condition: Stable Discharge Plan Plan Patient Disposition: HOME (Self Care) Discharge Disposition comment: Stable Prescriptions/Referrals Prescriptions/Med Rec: No Action tamsulosin 0.4 mg capsule 0.4 mg PO QHS finasteride 5 mg tablet 5 mg PO QDAY omeprazole 20 mg capsule,delayed release(DR/EC) 20 mg PO QDAY losartan 25 mg tablet 25 mg PO BID triamterene-hydrochlorothiazid 37.5-25 mg capsule 1 cap PO QDAY Problem List Clinical Impression: Encounter for Herrera catheter replacement Patient/Caregiver Discharge Instructions Additional Instructions: Please follow-up with your urologist in the next 24 to 48 hours Your catheter was replaced with no complications For any evidence of worsening signs or symptoms return to emergency room immediately Print Language: Macedonian Stand Alone Forms: Myrna Award Info., Work/School Release, Patient Portal Info Letter DAVID/KISHOR Supervising Physician DAVID/KISHOR Supervising Physician: Dr. VASQUES
[2025-02-07] MEDS: LIDOCAINE JELLY 2% (Urojet) 10 ML TUBE TOP (07:56)
--- NOTE | 2025-02-07 08:20 | PC.NURSE ---
Coleman changed with PROJECT MGR at bedside.
== END 2025-02-07 08:25 | disposition home or self-care (01) ==
LOC: SERX 08:24
PROVIDERS: Emergency Provider Nurse Practitioner Family; PCP Internal Medicine
DX: Z46.6 Encounter for fitting and adjustment of urinary device (principal); N40.0 Benign prostatic hyperplasia without lower urinary tract symptoms
CPT/HCPCS: 51702; 99282; A4314